=== PATIENT | female | born 1955 | race Caucasian/White ===

== ENCOUNTER 2016-11-18 10:01 | Observation (INO) | payer OTHER ==
--- NOTE | ~2016-11-18 | PREOPHP ---
PreOp History and Physical [facility] [address] [place]. [address] NAME: NAVEEN LONDON : 55 STATUS : ADM IN PAT#: [id number] AGE: 61 ADM/REG DATE : 11/18/16 MR#: [id number] REPORT SERV DATE: 11/18/16 DICTATED BY: SUKHWINDER BOWMAN DATE: 11/18/16 REPORT STATUS : Draft TRANSCRIBED BY: BASSEM DATE: 11/18/16 CHIEF COMPLAINT: Intractable left hip pain, and weakness, left leg. HISTORY OF PRESENT ILLNESS: A 61-year-old female, I saw her yesterday in the office for the first time, who presented with just a recent onset of severe intractable leg pain, started in the left buttock and then moved anteriorly around the groin and the thigh, but most of the demonstrable weakness was shown in the quadriceps, where this strength was only 2 or 3/5. She could not stand and walk on her left leg due to the marked weakness. She had fallen several times. She had just had an MRI that shows a massive extruded disk herniation that had migrated behind the body of L3 with marked compression of the nerve root at L3. The patient was having such severe pain and so much muscle weakness, I told her that she needs to have something done urgently due to neurologic deficit. She decided she wanted to go home for the evening, but came back this morning to my physician's resident programs assistant office saying she could not take the pain another minute. Pain was 10/10 and it was in the same distribution, but again was so out of control, she could not take it. Also the marked weakness had not changed, but after my discussion with her on how serious a problem this can be, she elected to return. We have admitted for IV pain control. She will be brought to Surgery for a left-sided L2-3 hemilaminotomy, foraminotomy. We will attempt to do a microdiskectomy. If the canal is really tight and we cannot safely retract the thecal sac and remove the disk safely without severe retraction then we will need to proceeded with a complete facetectomy to create enough room to be able to remove the disk satisfactorily. If a facetectomy is necessary, then a re-stabilization will be required through a transforaminal diskectomy, interbody cage insertion, and a posterolateral interbody fusion with percutaneous instrumentation. I have explained this to the patient and her of both possibilities, they agree completely and want to proceed with surgery. I have gone over the risks, benefits, alternatives, expectations about the simple decompression versus a decompression and fusion. Please note also because of the complexity of surgery and the need to identify the correct level of surgery intraoperatively as well as desire to carry out the safest and most precise dissection, I feel that intraoperative navigation will be mandatory. PAST MEDICAL HISTORY: Includes osteoarthritis, asthma, gastroesophageal reflux disease. PAST SURGICAL HISTORY: She has had an anterior cervical diskectomy and fusion, and a total knee arthroplasty on the right. Colonoscopy, inguinal herniorrhaphy, and abdominal hysterectomy. CURRENT MEDICATIONS: Include atorvastatin, escitalopram, Combivent, Neurontin, meloxicam, montelukast, oxycodone, and pantoprazole. ALLERGIES: COUMADIN. SOCIAL HISTORY: She is . Right-hand dominant, retired, has been a smoker. We have advised her that she certainly should stop. She does not use any alcohol. PreOp History and Physical [address] [address] NAME: NAVEEN LONDON : 55 STATUS : ADM IN [facility]#: [id number] AGE: 61 ADM/REG DATE : 11/18/16 MR#: [id number] REPORT SERV DATE: 11/18/16 DICTATED BY: SUKHWINDER BOWMAN DATE: 11/18/16 REPORT STATUS : Draft TRANSCRIBED BY: BASSEM DATE: 11/18/16 FAMILY HISTORY: Her mother had coronary artery disease and [place]. Her father had cerebrovascular accident. REVIEW OF SYSTEMS: She denies any current chest pain, pressure, or shortness of breath except that on a regular daily basis she has some mild degree of dyspnea due to her prior smoking history. She denies any loss of bowel or bladder control. She is having great difficulty and found it almost impossible to walk due to marked weakness that she has. PHYSICAL EXAMINATION: VITAL SIGNS: She is 5 feet 6 inches, 130 pounds. GENERAL: Alert, cooperative, well oriented. She was in a wheelchair. HEENT: Exam is grossly normal. LUNGS: Clear to auscultation. HEART: Rate is regular and rhythmic. ABDOMEN: Soft with good bowel sounds. MUSCULOSKELETAL: The spine itself has no deformities. She has a markedly positive femoral nerve stretch test on the left. Straight leg raising sign is negative. Patellar reflex is completely absent. Her quadriceps strength is just unbelievably weak at 3-/5. Her sensory exam showed a decrease in the L3 distribution on the left. The motor strength otherwise is normal on the right side and the left side. The Achilles reflexes are 1/4 bilateral. Toes are downgoing. No ankle clonus is found. Moni signs are negative. Fabere signs are negative. Orthopedically, she has no pain with moving hips, knees, or ankles. There are good pulses in all four extremities. No abnormal skin lesions are found. ASSESSMENT AND RECOMMENDATIONS: As listed above. SH/MODL Sukhwinder Bowman D.O. / [id number] CC: Kirby Milton MD
--- NOTE | ~2016-11-18 | OP ---
Record Of Operation [facility] [address] [place]. 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 PROCEDURE: 1. Microscopic and navigation-assisted surgery. 2. Left L2-3 hemilaminotomy, partial facetectomy, and microdiskectomy. SURGEON: Sukhwinder Bowman D.O. TROUBLE TRACER: Castillo Swan. ANESTHESIA: General. ESTIMATED BLOOD LOSS: 10 mL. INDICATIONS FOR SURGERY: Indications for surgery and risks were explained. They are listed in last office note as well history and physical. Please note that because of the complexity of surgery, and the need to identify correct level of surgery intraoperatively, as well as the desire to carry out the safest and most precise dissection, I feel intraoperative navigation is mandatory. DESCRIPTION OF PROCEDURE: Antibiotic prophylaxis was given. Neurophysiology monitoring leads were inserted. The patient was brought to the operative suite. General anesthetic including endotracheal intubation was administered. The patient was placed prone on a Momo spine frame. Bony prominences were carefully padded. Thoracolumbar spine scrubbed with Hibiclens solution. DuraPrep was painted. Sterile drapes were applied. A small stab wound was carried out over the right posterior superior iliac spine. A percutaneous pin with navigational frame attached was inserted into the PSIS. Intraoperative CT scan with O-arm was obtained. CT information was used to register the navigational system. With navigational assistance, I identified the L2-3 level. Just left of midline, a 2 cm skin incision was carried out. A blunt navigated probe was placed through the fascia and muscle and docked over the interlaminar space. Muscle dilator was inserted, followed by placement of a tubular retractor attached to an arm mount on the table. The microscope was sterilely draped and used throughout the remainder of the procedure. With navigational assistance, I determined the amount of lamina of L2, I needed to remove in Record Of Operation [facility] [address] [place]. [address] NAME: NAVEEN LONDON : 55 STATUS : ADM IN [facility]#: [id number] AGE: 61 ADM/REG DATE : 11/18/16 MR#: [id number] REPORT SERV DATE: 11/19/16 DICTATED BY: SUKHWINDER BOWMAN DATE: 11/19/16 REPORT STATUS : Draft TRANSCRIBED BY: MODL DATE: 11/19/16 order to reach the cephalad boundary of the disk space. I used a 3 mm dawit bur and removed approximately 50% to 60% lamina of L2, with approximately 30% to 35% of medial facet joint of L2-3. The lateral ligamentum flavum was elevated and removed. I removed 10% of the superior lamina of L3. I did have enough space so that I gently identified the thecal sac and the nerve root. I gently retracted toward the midline and had enough space, so that I could retrieve the large extruded fragment with a nerve hook and was able to remove the disk fragment as one large piece. Afterwards, hemostasis was obtained. There was no other disk fragments found. The wound was irrigated. The retractor was removed. The fascial opening was allowed to reapproximate itself. The subcutaneous tissue was closed with 2-0 Vicryl sutures, and 2-0 vertical mattress nylon suture was used for skin closure. Sterile dressings were applied. The patient was awakened, extubated, taken to recovery room in satisfactory condition having tolerated procedure well. Sponge, needle, and instrument counts were correct. No intraoperative complications noted. /BRITTNEYL Sukhwinder Bowman D.O. / [id number] CC: Kirby Milton ALLAN C.
[~2016-11-18 10:01] MED LIST: ACET500CAP PO; ALKA-SELTZE4 PO; ASA5GR PO; BENTYL10 PO; BENTYL20 PO; BUT/APAP/CA3 OR; BUT/APAP/CA3 PO; CALTRA600D PO; CLARIT10 PO; COMBIVENT RESPIM4 GM INH; COUMADIN4 MG PO; CRESTOR10 PO; CRESTOR40 MG PO; CYMBALTA60 PO; DSS PO; ENDOCET1 TA2 PO; ESGIC1 TAB PO; ESTRACE1 MG PO; GOODY'S BODY P1 EACH PO; GOODY'S EX-STR1 EAC1 PO; GOODYS PM1 POW OR; HORMONE PELLET SQ; LEVAQUIN5T PO; LEXAPRO10 PO; LIPITOR40 PO; LORTAB 5 PO; LORTAB10 PO; LYRICA150 MG PO; LYRICA300 MG PO; MOBIC15 MG PO; MULTIPLE VIT PO; NEUR300 PO; PCET PO; PREV30 PO; PROTONIX PO; RANITIDINE300 MG PO; REG PO; SINGULAIR1 PO; SOMATAB PO; TUMSROLL PO; TYLENOL ARTH650 MG PO; TYLENOL PM PO; ULTRAM50 PO; VITAMIN B-1500 MG PO; VITAMIN D31000 UNIT PO; ZANTAC150 MG PO; ZANTAC300 MG PO
[2016-11-18 11:09] LABS: BASOPHILS 0.6 %; BASOPHILS ABSOLUTE 0.04 10/3/uL (0.0-0.16); EOSINOPHILS 3.9 %; EOSINOPHILS ABSOLUTE 0.26 10/3/uL (0.0-0.53); HEMATOCRIT 37.3 % (36.0-48.0); HEMOGLOBIN 12.3 g/dL (12.0-16.0); IMMATURE GRANULOCYTES 0.1 %; IMMATURE GRANULOCYTES ABSOLUTE 0.01 10/3/uL (0.0-0.11); LYMPHOCYTES 27.4 %; LYMPHOCYTES ABSOLUTE 1.83 10/3/uL (0.67-4.30); MEAN CORPUSCULAR HEMOGLOB 29.3 pg (26.0-34.0); MEAN CORPUSCULAR VOLUME 88.8 fL (80-100); MEAN PLATELET VOLUME 8.8 fL (9.2-13.0); MONOCYTES 8.4 %; MONOCYTES ABSOLUTE 0.56 10/3/uL (0.21-1.20); NEUTROPHILS 59.6 %; NEUTROPHILS ABSOLUTE 3.99 10/3/uL (2.02-8.40); PLATELET COUNT 313 10/3/uL (150-400); RBC DISTRIBUTION WIDTH 15.1 % (12.0-16.0); WHITE BLOOD CELLS 6.7 10/3/uL (4.5-10.5)
[2016-11-18 11:10] LABS: MANUAL DIFF NO %
[2016-11-18 11:16] LABS: INTERNATIONAL NORMAL RATI 1.1 UNITS (-); PARTIAL THROMBO TIME 33.7 SEC (22.5-37.2); PROTIME (NOT ORD) 13.7 SEC (12.0-14.5)
[2016-11-18 11:20] LABS: BUN (BLOOD UREA NITROGEN) 9 MG/DL (6-23); CHLORIDE, SERUM 103 MMOL/L (96-112); CO2 (CARBON DIOXIDE) 27 MMOL/L (24-34); CREATININE 0.56 MG/DL (0.55-1.02); GFR AFRICAN AMERICAN 117 ML/MIN (>=60); GFR NON AFRICAN AMERICAN 101 ML/MIN (>=60); POTASSIUM, SERUM 3.5 MMOL/L (3.5-5.3); SODIUM, SERUM 137 MMOL/L (135-148)
[2016-11-18 11:21] LABS: GLUCOSE, SERUM 93 MG/DL (60-99)
[2016-11-18] MEDS ORDERED: NEUR300 PO (12:36)
[2016-11-18] MEDS ORDERED: PERCOCET 7.5/321 TAB PO (12:36)
[2016-11-18] MEDS ORDERED: D 5000 PO (12:37)
[2016-11-18] MEDS ORDERED: PROTONIX PO (12:37)
[2016-11-18] MEDS ORDERED: CELEXA20 PO (12:37)
[2016-11-18] MEDS ORDERED: SINGULAIR1 PO (12:37)
[2016-11-18] MEDS ORDERED: LIPITOR40 PO (12:37)
[2016-11-18] MEDS ORDERED: MOBIC15 MG PO (12:37)
[2016-11-18] MEDS ORDERED: GOODY'S EX-STR1 EAC1 PO (12:38)
[2016-11-18] MEDS ORDERED: COMBIVENT RESPIM4 GM PO (12:38)
[2016-11-18] MEDS ORDERED: B121000P IM (12:38)
[2016-11-18] MEDS ORDERED: [UNRECOGNIZED DRUG - OTHER] NAS (12:39)
[2016-11-20 05:02] LABS: BASOPHILS 0.1 %; BASOPHILS ABSOLUTE 0.01 10/3/uL (0.0-0.16); EOSINOPHILS 0 %; HEMATOCRIT 35.5 % (36.0-48.0); HEMOGLOBIN 11.8 g/dL (12.0-16.0); IMMATURE GRANULOCYTES 0.2 %; IMMATURE GRANULOCYTES ABSOLUTE 0.02 10/3/uL (0.0-0.11); LYMPHOCYTES 5.1 %; LYMPHOCYTES ABSOLUTE 0.54 10/3/uL (0.67-4.30); MANUAL DIFF NO %; MEAN CORPUS HGB CONC 33.2 g/dL (32.0-36.0); MEAN CORPUSCULAR HEMOGLOB 29.9 pg (26.0-34.0); MEAN CORPUSCULAR VOLUME 90.1 fL (80-100); MEAN PLATELET VOLUME 9.2 fL (9.2-13.0); MONOCYTES 2.9 %; MONOCYTES ABSOLUTE 0.31 10/3/uL (0.21-1.20); NEUTROPHILS 91.7 %; NEUTROPHILS ABSOLUTE 9.68 10/3/uL (2.02-8.40); PLATELET COUNT 291 10/3/uL (150-400); RBC DISTRIBUTION WIDTH 14.5 % (12.0-16.0); RED CELL COUNT 3.94 10/6/uL (4.0-5.6); WHITE BLOOD CELLS 10.6 10/3/uL (4.5-10.5)
[2016-11-20 05:09] LABS: BUN (BLOOD UREA NITROGEN) 7 MG/DL (6-23); CALCIUM, SERUM 8.7 MG/DL (8.5-10.4); CHLORIDE, SERUM 99 MMOL/L (96-112); CO2 (CARBON DIOXIDE) 28 MMOL/L (24-34); CREATININE 0.68 MG/DL (0.55-1.02); GFR AFRICAN AMERICAN 109 ML/MIN (>=60); GFR NON AFRICAN AMERICAN 94 ML/MIN (>=60); SODIUM, SERUM 135 MMOL/L (135-148)
[2016-11-20 05:10] LABS: GLUCOSE, SERUM 158 MG/DL (60-99); POTASSIUM, SERUM 4.7 MMOL/L (3.5-5.3)
[2016-11-20] MEDS ORDERED: PCET PO (11:25)
[2016-11-20] MEDS ORDERED: ENDOCET1 TAB PO (11:25)
[2016-11-20] MEDS ORDERED: METHOC500B PO (11:26)
== END 2016-11-20 13:26 | disposition home or self-care (01) ==
LOC: 3SO 10:01
PROVIDERS: Orthopaedic Surgery Orthopaedic Surgery of the Spine
PROC: 0SB20ZZ Excision of Lumbar Vertebral Disc, Open Approach (ICD-10-PCS; principal; 2016-11-19 11:45)
PROC: 01NB0ZZ Release Lumbar Nerve, Open Approach (ICD-10-PCS; 2016-11-19 11:45)
DX: M51.26 Other intervertebral disc displacement, lumbar region (principal); J44.9 Chronic obstructive pulmonary disease, unspecified; J45.909 Unspecified asthma, uncomplicated; M19.90 Unspecified osteoarthritis, unspecified site; K21.9 Gastro-esophageal reflux disease without esophagitis; Z88.8 Allergy status to other drugs, medicaments and biological substances; Z79.82 Long term (current) use of aspirin; Z79.899 Other long term (current) drug therapy; Z79.1 Long term (current) use of non-steroidal anti-inflammatories (NSAID); Z98.1 Arthrodesis status; Z96.651 Presence of right artificial knee joint; Z90.710 Acquired absence of both cervix and uterus; Z98.890 Other specified postprocedural states; Z87.891 Personal history of nicotine dependence; Z82.49 Family history of ischemic heart disease and other diseases of the circulatory system; Z82.3 Family history of stroke
CPT/HCPCS: 71020; 80048; 82962; 85025; 85610; 85730; 87641; 88304; 88311; 93005; 96374; 96375; 96376; 97161-GP; A9270-GY; G0378; J0690; J1170; J1644; J2250; J2405; J2710; J3010; J3370